=== PATIENT | male | born 1975 | race Caucasian/White ===

== ENCOUNTER 2016-09-17 09:36 | Day surgery (SDC) | payer BC, OTHER ==
[2016-09-15 10:31] VITALS: BMI 27.7
[~2016-09-17 09:36] MED LIST: DEXAMETHASONE SOD PHOSPHATE 10 MG/ML 1 ML VIAL IV ONE; FAMOTIDINE 20 MG/2 ML VIAL IV ONE; HYDROmorphone 1 MG/ML 1 ML SYRINGE IVP PRN; LACTATED RINGERS 1,000 ML IV SCH; LIDOCAINE 1% 20 ML VIAL (10MG/ML) FOR IV START INTRADERMA PRN; MIDAZOLAM 2 MG/2 ML VIAL IV PRN; ONDANSETRON 4 MG/2 ML VIAL IVP ONE; SCOPOLAMINE 1.5MG/72HR PATCH TRANSDERM ONE
[2016-09-17] MEDS ORDERED: fentaNYL (PF) 50 MCG/ML 2 ML AMP ONE (10:35)
[2016-09-17] MEDS ORDERED: MIDAZOLAM 2 MG/2 ML VIAL ONE (10:35)
[2016-09-17] MEDS ORDERED: LIDOCAINE 1% INJ 10MG/ML (20 ML MDV) ONE (10:35)
[2016-09-17] MEDS ORDERED: PROPOFOL 10 MG/ML 20 ML VIAL IV ONE (10:35)
[2016-09-17] MEDS ORDERED: OFLOXACIN 0.3% OTIC DROPS 5 ML BTL RIGHT EAR ONE ×2 (10:43→10:53)
--- NOTE | 2016-09-17 10:59 | P.OP ---
Date of Procedure: 09/17/16 Preoperative Diagnosis: Right chronic otitis media with effusion Postoperative Diagnosis: Same Procedure(s) Performed: Right triune ventilation tube placement Anesthesia: VICKIE SALDANA Surgeon: Hilario Mejia Estimated Blood Loss (ml): 0 Pathology: none sent Condition: stable Disposition: PACU Indications for Procedure: This is a 41-year-old white male whose had difficulties with chronic otitis media having had ventilation tubes 2 or 3 times in the right ear previously. His symptoms resolved with ventilation tube placement but then recur when these extrude was noted to have a serous middle ear effusion with conductive hearing loss on the right. Operative Findings: Right side serous middle ear effusion Description of Procedure: The patient was brought in the operative suite and placed in a supine position. The patient underwent induction of general anesthesia with laryngeal mask airway intubation without difficulty. The patient was prepped and draped in usual aseptic fashion. The Zeiss microscope was positioned over the right ear and cerumen was cleaned from the external auditory canal. An anteroinferior myringotomy was placed in radial fashion and the middle ear effusion was aspirated. A 1.27 mm triune ventilation tube was placed without difficulty. Floxin otic suspension was placed in the external auditory canal followed by sterile cotton ball. The patient was then allowed to emerge from general anesthesia having tolerated procedure well was excised in the operating suite and transferred to postop recovery area in satisfactory condition.
[2016-09-17 11:13] VITALS: TEMP 97
[2016-09-17 11:34] VITALS: RESP 18
[2016-09-17 12:15] VITALS: BP 126/81; PULSE 61
== END 2016-09-17 12:31 | disposition home or self-care (01) ==
LOC: OR 09:36
PROVIDERS: ATTEND Otolaryngology
DX: H65.21 Chronic serous otitis media, right ear (principal); H90.11 Conductive hearing loss, unilateral, right ear, with unrestricted hearing on the contralateral side
CPT/HCPCS: 69436; J2250; J1100; J2405; J2001; J3010; J1170; J2704

== ENCOUNTER → 2021-08-30 | Outpatient (CLI) | payer BC ==
[2021-08-30 10:26] LABS: Basophils % (A) 0.9 %; Eosinophils # (A) 0.89 X 10*3/uL (0.04-0.35); Eosinophils % (A) 7.6 %; HCT 47.6 % (39.6-50.0); HGB 16.7 g/dL (13.0-17.0); Immature Grans, Automated 0.4 %; Lymphocytes # (A) 2.26 X 10*3/uL (0.90-5.00); Lymphocytes % (A) 19.3 %; MCH 32.7 pg (27.0-32.0); MCHC 35.1 g/dL (32.0-37.0); MCV 93.3 fL (80.0-97.0); Mean Platelet Volume 9.1 fL (9.5-12.2); Monocytes # (A) 1.24 X 10*3/uL (0.20-1.00); Monocytes % (A) 10.6 %; NRBC Per 100 WBC 0 /100 WBCS (0.0-0.0); Neutrophils # (A) 7.16 X 10*3/uL (1.80-7.70); Neutrophils % (A) 61.2 %; Platelet Count 471 X 10*3/uL (140-440); RDW 12.8 % (11.5-14.5)
[2021-08-30 10:47] LABS: ALT 22 U/L (10-49); AST 21 U/L (14-35); African American GFR (CKD) 117.5 (60.0-200.0); Alkaline Phosphatase 56 U/L (41-126); BUN/Creat Ratio 17.22 Ratio (12.00-20.00); Blood Urea Nitrogen 15.5 mg/dL (9.0-27.0); Calcium 9.8 mg/dL (8.7-10.3); Carbon Dioxide 25.2 mmol/L (20.0-27.5); Chloride 106 mmol/L (96-109); Chol/HDL Ratio 3.35 Ratio; Glucose 96 mg/dL (70-110); Hepatitis C IgG Antibody Nonreactive (Nonreactive); LDL Cholesterol,Calculated 75.2 mg/dL (0.0-131.0); Non-African American GFR(CKD) 101.4 (60.0-200.0); Potassium 4.6 mmol/L (3.5-5.5); Sodium 141 mmol/L (135-145); VLDL Calculation 19.54 mg/dL (5.00-40.00)
== END | disposition home or self-care (01) ==
LOC: LABWHC1 07:06
PROVIDERS: ATTEND Family Medicine
DX: Z00.00 Encounter for general adult medical examination without abnormal findings (principal); Z71.3 Dietary counseling and surveillance; Z71.82 Exercise counseling; Z12.5 Encounter for screening for malignant neoplasm of prostate; Z13.29 Encounter for screening for other suspected endocrine disorder; I10 Essential (primary) hypertension; Z90.81 Acquired absence of spleen
CPT/HCPCS: 36415; 80053; 80061; 84443; 85025; 86803; 87522

== ENCOUNTER 2023-10-09 20:45 | Inpatient (IN) | payer BC, OTHER ==
[2023-10-09] MEDS: KETOROLAC 15 MG/ML 1 ML VIAL IVP STA (23:55)
[2023-10-09] MEDS: SODIUM CHLORIDE 0.9% 1,000 ML IV STA (23:58)
[2023-10-10 00:29] LABS: ALT 34 U/L (4-49); AST 44 U/L (17-59); African American GFR (CKD) >90 (>60 ml/min/1.73 sqM); Albumin 3.8 g/dL (3.5-5.0); Alkaline Phosphatase 103 U/L (38-126); Amylase 49 U/L (30-110); Anion Gap 7 mmol/L; Blood Urea Nitrogen 13 mg/dL (9-20); Calcium 8.5 mg/dL (8.4-10.2); Carbon Dioxide 21 mmol/L (22-30); Chloride 108 mmol/L (98-107); Glucose 134 mg/dL (74-99); Lipase 86 U/L (23-300); Non-African American GFR(CKD) >90 (>60 ml/min/1.73 sqM); Potassium 4.1 mmol/L (3.5-5.1); Sodium 136 mmol/L (137-145); Total Bilirubin 2.2 mg/dL (0.2-1.3); Total Protein 6.8 g/dL (6.3-8.2)
[2023-10-10 00:38] LABS: Basophils # (A) 0.1 k/uL (0-0.2); Basophils % (A) 0 %; Eosinophils # (A) 0.1 k/uL (0-0.7); Eosinophils % (A) 1 %; HCT 42.9 % (39.0-53.0); HGB 16.2 gm/dL (13.0-17.5); Hyperchromasia Moderate; Lymphocytes # (A) 2.5 k/uL (1.0-4.8); Lymphocytes % (A) 15 %; MCH 34.8 pg (25.0-35.0); MCHC 37.7 g/dL (31.0-37.0); MCV 92.3 fL (80.0-100.0); Mean Platelet Volume 8.4; Monocytes # (A) 1.7 k/uL (0-1.0); Monocytes % (A) 10 %; Neutrophils # (A) 12.6 k/uL (1.3-7.7); Neutrophils % (A) 73 %; Platelet Count 385 k/uL (150-450); RBC 4.65 m/uL (4.30-5.90); RDW 12.6 % (11.5-15.5); WBC 17.1 k/uL (3.8-10.6)
[2023-10-10] MEDS: ONDANSETRON 4 MG/2 ML VIAL IVP STA (01:00)
--- NOTE | 2023-10-10 01:39 | CT ---
EXAM: CT Abdomen and Pelvis With Intravenous Contrast CLINICAL HISTORY: ITS.REASON CT Reason: abdominal pain TECHNIQUE: Axial computed tomography images of the abdomen and pelvis with intravenous contrast. CTDI is 24.8 mGy and DLP is 1324.1 mGy-cm. This CT exam was performed using one or more of the following dose reduction techniques: automated exposure control, adjustment of the mA and/or kV according to patient size, and/or use of iterative reconstruction technique. COMPARISON: No relevant prior studies available. FINDINGS: Lung bases: Unremarkable. No mass. No consolidation. ABDOMEN: Liver: Unremarkable. No mass. Gallbladder and bile ducts: Unremarkable. No calcified stones. No ductal dilation. Pancreas: Unremarkable. No mass. No ductal dilation. Spleen: Unremarkable. No splenomegaly. Adrenals: Unremarkable. No mass. Kidneys and ureters: Unremarkable. No solid mass. No hydronephrosis. Stomach and bowel: Diverticulosis, without acute diverticulitis. No small bowel obstruction. No free intraperitoneal air. PELVIS: Appendix: Normal appendix. Bladder: Unremarkable. No mass. Reproductive: Unremarkable as visualized. ABDOMEN and PELVIS: Intraperitoneal space: Unremarkable. No free air. No significant fluid collection. Bones/joints: Degenerative changes of the spine. No acute fracture. No dislocation. Soft tissues: Unremarkable. Vasculature: Suspected thrombus within the superior mesenteric vein and portal vein with surrounding edema. Abdominal ultrasound recommended for further evaluation. Atherosclerotic changes of the aorta. No abdominal aortic aneurysm. Lymph nodes: Unremarkable. No enlarged lymph nodes. IMPRESSION: Suspected thrombus within the superior mesenteric vein and portal vein with surrounding edema. Abdominal ultrasound recommended for further evaluation.
[2023-10-10 01:45] LABS: Appearance,Urine Clear (Clear); Bilirubin,Urine Negative (Negative); Blood,Urine Negative (Negative); Color,Urine Yellow; Glucose,Urine (UA) Negative (Negative); Ketones,Urine Negative (Negative); Leukocyte Esterase,Urine Negative (Negative); Nitrite,Urine Negative (Negative); Protein,Urine 1+ (Negative); RBC,Urine 4 /hpf (0-5); Squamous Epithelial Cell,Urine <1 /hpf (0-4); Urobilinogen,Urine <2.0 mg/dL (<2.0)
[2023-10-10 01:54] LABS: Specific Gravity,Urine >1.050 (1.001-1.035)
--- NOTE | 2023-10-10 02:24 | ED ---
Abdominal Pain HPI - General Source: patient Mode of arrival: ambulatory Limitations: no limitations <Brett Vila - Last Filed: 10/10/23 03:45> <Jewel Guadalupe - Last Filed: 10/12/23 04:34> - General Chief Complaint: Abdominal Pain Stated Complaint: abd pain NVD Time Seen by Provider: 10/09/23 22:40 - History of Present Illness Initial Comments: 48-year-old male presenting with chief complaint of abdominal pain. Patient has had left upper quadrant pain for the last 5 days. Diarrhea c/o. No vomiting. Pain gets worse with deep breaths.. No URI-like symptoms. No hematochezia or melena. No dysuria or hematuria. Surgical history includes splenectomy at age 4, does not remember the cause. Admits to social alcohol use (Brett Vila) - Related Data Home Medications Medication Instructions Recorded Confirmed No Known Home Medications 10/10/23 10/10/23 Allergies Allergy/AdvReac Type Severity Reaction Status Date / Time No Known Allergies Allergy Verified 10/10/23 08:35 Review of Systems ROS Other: All systems not noted in ROS Statement are negative. <Brett Vila - Last Filed: 10/10/23 03:45> ROS Other: All systems not noted in ROS Statement are negative. <Jewel Guadalupe - Last Filed: 10/12/23 04:34> ROS Statement: Those systems with pertinent positive or pertinent negative responses have been documented in the HPI. Past Medical History Past Medical History: Hearing Disorder / Deafness, Hypertension Additional Past Medical History / Comment(s): RT HEARING POOR R/T OM. 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 Absent: meningismus Respiratory exam: Present: normal lung sounds bilaterally. Absent: respiratory distress, wheezes, rales, rhonchi, stridor Cardiovascular Exam: Present: regular rate, normal rhythm, normal heart sounds. Absent: systolic murmur, diastolic murmur, rubs, gallop, clicks GI/Abdominal exam: Present: soft, tenderness (LUQ). Absent: distended, guarding, rebound, rigid Neurological exam: Present: alert, oriented X3 Psychiatric exam: Present: normal affect, normal mood Skin exam: Present: warm, dry <Brett Vila - Last Filed: 10/10/23 03:45> Course Vital Signs 10/09/23 10/10/23 10/10/23 21:07 04:00 08:00 Temperature 99.1 F Pulse Rate 85 70 76 Respiratory 18 18 18 Rate Blood Pressure 152/96 132/93 135/100 O2 Sat by Pulse 97 97 98 Oximetry 10/10/23 10/10/23 10/10/23 13:00 18:00 20:30 Temperature Pulse Rate 80 79 81 Respiratory 17 17 18 Rate Blood Pressure 141/100 136/87 128/84 O2 Sat by Pulse 98 98 98 Oximetry Medical Decision Making - Lab Data Result diagrams: 10/09/23 23:36 10/09/23 23:36 <Brett Vila - Last Filed: 10/10/23 03:45> - Lab Data Result diagrams: 10/11/23 05:49 10/09/23 23:36 <Jewel Guadalupe - Last Filed: 10/12/23 04:34> - Medical Decision Making Was pt. sent in by a medical professional or institution (, PA, DENTAL OFFICE ASSISTANT, urgent care, hospital, or penitentiary...) When possible be specific @ -No Did you speak to anyone other than the patient for history (EMS, parent, family, police, friend...)? What history was obtained from this source @ -No Did you review nursing and triage notes (agree or disagree)? Why? @ -I reviewed and agree with nursing and triage notes Were old charts reviewed (outside hosp., previous admission, EMS record, old EKG , old radiological studies, urgent care reports/EKG's, penitentiary records)? Report findings @ -No old charts were reviewed Differential Diagnosis (chest pain, altered mental status, abdominal pain women, abdominal pain men, vaginal bleeding, weakness, fever, dyspnea, syncope, headache, dizziness, GI bleed, back pain, seizure, CVA, palpatations, mental health, musculoskeletal)? @ -MDM Differential Abdominal Pain Men: Appendicitis, cholecystitis, diverticulosis, ischemic bowel, pancreatitis, hepatitis, UTI, gastroenteritis, AAA, incarcerated hernia, bowel obstruction, constipation, inflammatory bowel, hepatitis, peptic ulcer disease, splenic infarction, perforated viscus, testicular torsion... This is not meant to be an all-inclusive list EKG interpreted by me (3pts min.). @ -As above X-rays interpreted by me (1pt min.). @ -None done CT interpreted by me (1pt min.). @ -CT shows suspected thrombosis within the superior mesenteric vein and portal vein with surrounding edema. Abdominal ultrasound recommended for further evaluation. U/S interpreted by me (1pt. min.). @ -None done What testing was considered but not performed or refused? (CT, X-rays, U/S, labs)? Why? @ -None What meds were considered but not given or refused? Why? @ -None Did you discuss the management of the patient with other professionals (professionals i.e. , PA, DENTAL OFFICE ASSISTANT, lab, RT, psych nurse, school social worker, bolt header, teacher, space operations officer, case packer)? Give summary @ -I spoke with vascular surgeon on-call Dr. Rivers who advised beginning anticoagulation Was smoking cessation discussed for >3mins.? @ -No Was critical care preformed (if so, how long)? @ -No Were there social determinants of health that impacted care today? How? (Homelessness, low income, unemployed, alcoholism, drug addiction, transportation, low edu. Level, literacy, decrease access to med. care, halfway, rehab)? @ -No Was there de-escalation of care discussed even if they declined (Discuss DNR or withdrawal of care, Hospice)? DNR status @ -No What co-morbidities impacted this encounter? (DM, HTN, Smoking, COPD, CAD, Cancer, CVA, ARF, Chemo, Hep., AIDS, mental health diagnosis, sleep apnea, morbid obesity)? @ -None Was patient admitted / discharged? Hospital course, mention meds given and route, prescriptions, significant lab abnormalities, going to OR and other pertinent info. @ -48-year-old male presenting with chief complaint of left upper quadrant pain. Physical exam is conducted. WBC 17.1. CT shows evidence of thrombosis within the portal vein and superior mesenteric vein. Patient was started on heparin and Zosyn. Blood cultures were drawn prior to initiating antibiotics. Patient will be admitted for evaluation by vascular surgery and general surgery. Patient is agreeable with this plan. I discussed this case with my attending Dr. Guadalupe Undiagnosed new problem with uncertain prognosis? @ -No Drug Therapy requiring intensive monitoring for toxicity (Heparin, Nitro, Insulin, Cardizem)? @ -Heparin Were any procedures done? @ -No Diagnosis/symptom? @ -Thrombosis of the portal vein, thrombosis of the superior mesenteric vein Acute, or Chronic, or Acute on Chronic? @ -Acute Uncomplicated (without systemic symptoms) or Complicated (systemic symptoms)? @ -Complicated Side effects of treatment? @ -No Exacerbation, Progression, or Severe Exacerbation? @ -No Poses a threat to life or bodily function? How? (Chest pain, USA, MA, pneumonia, PE, COPD, DKA, ARF, appy, cholecystitis, CVA, Diverticulitis, Homicidal, Suicidal, threat to staff... and all critical care pts) @ -Yes (Brett Vila) - Lab Data Lab Results 10/09/23 10/09/23 10/09/23 Range/Units 23:36 23:36 23:36 WBC 17.1 H (3.8-10.6) k/uL RBC 4.65 (4.30-5.90) m/uL Hgb 16.2 (13.0-17.5) gm/dL Hct 42.9 (39.0-53.0) % MCV 92.3 (80.0-100.0) fL MCH 34.8 (25.0-35.0) pg MCHC 37.7 H (31.0-37.0) g/dL RDW 12.6 (11.5-15.5) % Plt Count 385 (150-450) k/uL MPV 8.4 Neutrophils % 73 % Lymphocytes % 15 % Monocytes % 10 % Eosinophils % 1 % Basophils % 0 % Neutrophils # 12.6 H (1.3-7.7) k/uL Lymphocytes # 2.5 (1.0-4.8) k/uL Monocytes # 1.7 H (0-1.0) k/uL Eosinophils # 0.1 (0-0.7) k/uL Basophils # 0.1 (0-0.2) k/uL Hyperchromasia Moderate Sodium 136 L (137-145) mmol/L Potassium 4.1 (3.5-5.1) mmol/L Chloride 108 H (98-107) mmol/L Carbon Dioxide 21 L (22-30) mmol/L Anion Gap 7 mmol/L BUN 13 (9-20) mg/dL Creatinine 0.64 L (0.66-1.25) mg/dL Est GFR (CKD-EPI)AfAm >90 (>60 ml/min/1.73 sqM) Est GFR (CKD-EPI)NonAf >90 (>60 ml/min/1.73 sqM) Glucose 134 H (74-99) mg/dL Plasma Lactic Acid Anibal 1.5 (0.7-2.0) mmol/L Calcium 8.5 (8.4-10.2) mg/dL Total Bilirubin 2.2 H (0.2-1.3) mg/dL AST 44 (17-59) U/L ALT 34 (4-49) U/L Alkaline Phosphatase 103 (38-126) U/L Total Protein 6.8 (6.3-8.2) g/dL Albumin 3.8 (3.5-5.0) g/dL Amylase 49 (30-110) U/L Lipase 86 (23-300) U/L Urine Color Urine Appearance (Clear) Urine pH (5.0-8.0) Ur Specific [place] (1.001-1.035) Urine Protein (Negative) Urine Glucose (UA) (Negative) Urine Ketones (Negative) Urine Blood (Negative) Urine Nitrite (Negative) Urine Bilirubin (Negative) Urine Urobilinogen (<2.0) mg/dL Ur Leukocyte Esterase (Negative) Urine RBC (0-5) /hpf Ur Squamous Epith Cells (0-4) /hpf 10/10/23 Range/Units 01:15 WBC (3.8-10.6) k/uL RBC (4.30-5.90) m/uL Hgb (13.0-17.5) gm/dL Hct (39.0-53.0) % MCV (80.0-100.0) fL MCH (25.0-35.0) pg MCHC (31.0-37.0) g/dL RDW (11.5-15.5) % Plt Count (150-450) k/uL MPV Neutrophils % % Lymphocytes % % Monocytes % % Eosinophils % % Basophils % % Neutrophils # (1.3-7.7) k/uL Lymphocytes # (1.0-4.8) k/uL Monocytes # (0-1.0) k/uL Eosinophils # (0-0.7) k/uL Basophils # (0-0.2) k/uL Hyperchromasia Sodium (137-145) mmol/L Potassium (3.5-5.1) mmol/L Chloride (98-107) mmol/L Carbon Dioxide (22-30) mmol/L Anion Gap mmol/L BUN (9-20) mg/dL Creatinine (0.66-1.25) mg/dL Est GFR (CKD-EPI)AfAm (>60 ml/min/1.73 sqM) Est GFR (CKD-EPI)NonAf (>60 ml/min/1.73 sqM) Glucose (74-99) mg/dL Plasma Lactic Acid Anibal (0.7-2.0) mmol/L Calcium (8.4-10.2) mg/dL Total Bilirubin (0.2-1.3) mg/dL AST (17-59) U/L ALT (4-49) U/L Alkaline Phosphatase (38-126) U/L Total Protein (6.3-8.2) g/dL Albumin (3.5-5.0) g/dL Amylase (30-110) U/L Lipase (23-300) U/L Urine Color Yellow Urine Appearance Clear (Clear) Urine pH 8.0 (5.0-8.0) Ur Specific [place] >1.050 H (1.001-1.035) Urine Protein 1+ H (Negative) Urine Glucose (UA) Negative (Negative) Urine Ketones Negative (Negative) Urine Blood Negative (Negative) Urine Nitrite Negative (Negative) Urine Bilirubin Negative (Negative) Urine Urobilinogen <2.0 (<2.0) mg/dL Ur Leukocyte Esterase Negative (Negative) Urine RBC 4 (0-5) /hpf Ur Squamous Epith Cells <1 (0-4) /hpf Disposition Time of Disposition: 02:24 <Brett Vila - Last Filed: 10/10/23 03:45> <Jewel Guadalupe - Last Filed: 10/12/23 04:34> Clinical Impression: Portal vein thrombosis, Superior mesenteric vein thrombosis Disposition: ADMITTED IP TO THIS HOSP Condition: Serious
[2023-10-10] MEDS ORDERED: NALOXONE 0.4 MG/ML 1 ML VIAL IV PRN (02:39)
[2023-10-10] MEDS ORDERED: ONDANSETRON 4 MG/2 ML VIAL IVP PRN (02:39)
[2023-10-10] MEDS: SODIUM CHLORIDE 0.9% 1,000 ML IV SCH (03:21)
[2023-10-10] MEDS: PIPERACILLIN-TAZOBACTAM 3.375 GM in SODIUM CHLORIDE 0.9% 100 ML IVPB STA (03:21)
[2023-10-10 04:27] LABS: Partial Thromboplastin Time 25.8 sec (22.0-30.0)
[2023-10-10] MEDS: HEPARIN SOD,PORK IN 0.45% NACL 25,000 UNIT in 0.45% NACL 1 250ML.BAG IV SCH (04:48)
[2023-10-10] MEDS: HEPARIN SODIUM 1,000 UN/ML (10ML VL) IV ONE (04:50)
[2023-10-10] MEDS: HEPARIN SODIUM 1,000 UN/ML (10ML VL) IV PRN (09:42)
[2023-10-10] MEDS: HYDROmorphone 1 MG/ML 1 ML SYRINGE IVP PRN (13:12)
--- NOTE | 2023-10-10 13:51 | P.HPIM ---
History of Present Illness 48-year-old male came in with complaints of abdominal pain severe in the left upper and mid quadrants found to have superior mesenteric thrombosis. Patient denies any alcohol use does not have any history of cirrhosis patient does have leukocytosis without any evidence of infection patient denies any cough with sputum production and any dysuria, denies any nausea vomiting. Patient was started on IV heparin with vascular surgery and general surgery consultations REVIEW OF SYSTEMS: CONSTITUTIONAL: No fever, no malaise, no fatigue. HEENT: No recent visual problems or hearing problems. Denied any sore throat. CARDIOVASCULAR: No chest pain, orthopnea, PND, no palpitations, no syncope. PULMONARY: No shortness of breath, no cough, no hemoptysis. GASTROINTESTINAL as mentioned in HPI NEUROLOGICAL: No headaches, no weakness, no numbness. HEMATOLOGICAL: Denies any bleeding or petechiae. GENITOURINARY: Denies any burning micturition, frequency, or urgency. MUSCULOSKELETAL/RHEUMATOLOGICAL: Denies any joint pain, swelling, or any muscle pain. ENDOCRINE: Denies any polyuria or polydipsia. The rest of the 14-point review of systems is negative. PHYSICAL EXAMINATION: GENERAL: The patient is alert and oriented x3, not in any acute distress. Well developed, well nourished. HEENT: Pupils are round and equally reacting to light. EOMI. No scleral icterus. No conjunctival pallor. Normocephalic, atraumatic. No pharyngeal erythema. No thyromegaly. CARDIOVASCULAR: S1 and S2 present. No murmurs, rubs, or gallops. PULMONARY: Chest is clear to auscultation, no wheezing or crackles. ABDOMEN: Soft, nontender, nondistended, normoactive bowel sounds. No palpable organomegaly. MUSCULOSKELETAL: No joint swelling or deformity. EXTREMITIES: No cyanosis, clubbing, or pedal edema. NEUROLOGICAL: Gross neurological examination did not reveal any focal deficits. SKIN: No rashes. Assessment and plan -Superior mesenteric vein thrombosis: Continue with IV heparin vascular surgery and general surgery evaluation -Leukocytosis without any evidence of infection secondary to mesenteric thrombosis. DVT prophylaxis: On IV heparin Past Medical History Past Medical History: Hearing Disorder / Deafness, Hypertension Additional Past Medical History / Comment(s): RT HEARING POOR R/T OM. 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4., bunionectomy Past Anesthesia/Blood Transfusion Reactions: No Reported Reaction Past Psychological History: No Psychological Hx Reported Smoking Status: Never smoker Past Alcohol Use History: None Reported Past Drug Use History: Marijuana - Past Family History Father Family Medical History: Cancer Medications and Allergies Home Medications Medication Instructions Recorded Confirmed Type No Known Home Medications 10/10/23 10/10/23 History Allergies Allergy/AdvReac Type Severity Reaction Status Date / Time No Known Allergies Allergy Verified 10/10/23 08:35 Physical Exam Vitals: Vital Signs Temp Pulse Resp BP Pulse Ox 10/10/23 13:00 80 17 141/100 98 10/10/23 08:00 76 18 135/100 98 10/10/23 04:00 70 18 132/93 97 10/09/23 21:07 99.1 F 85 18 152/96 97 Intake and Output 10/09/23 10/10/23 10/10/23 22:59 06:59 14:59 Intake Total 49.167 Balance 49.167 Intake: Intake, IV Titration 49.167 Amount Heparin Sod,Pork in 0.45% 49.167 NaCl 25,000 unit In 0.45 % NaCl 1 250ml.bag @ 10. 021 UNITS/KG/HR 10 mls/hr IV .Q24H [facility] Rx#: [id number] Other: Weight 99.79 kg Results CBC & Chem 7: 10/09/23 23:36 10/09/23 23:36 Labs: Abnormal Lab Results - Last 24 Hours (Table) 10/09/23 10/09/23 10/10/23 Range/Units 23:36 23:36 01:15 WBC 17.1 H (3.8-10.6) k/uL MCHC 37.7 H (31.0-37.0) g/dL Neutrophils # 12.6 H (1.3-7.7) k/uL Monocytes # 1.7 H (0-1.0) k/uL APTT (22.0-30.0) sec Sodium 136 L (137-145) mmol/L Chloride 108 H (98-107) mmol/L Carbon Dioxide 21 L (22-30) mmol/L Creatinine 0.64 L (0.66-1.25) mg/dL Glucose 134 H (74-99) mg/dL Total Bilirubin 2.2 H (0.2-1.3) mg/dL Ur Specific [place] >1.050 H (1.001-1.035) Urine Protein 1+ H (Negative) 10/10/23 Range/Units 08:21 WBC (3.8-10.6) k/uL MCHC (31.0-37.0) g/dL Neutrophils # (1.3-7.7) k/uL Monocytes # (0-1.0) k/uL APTT 37.3 H (22.0-30.0) sec Sodium (137-145) mmol/L Chloride (98-107) mmol/L Carbon Dioxide (22-30) mmol/L Creatinine (0.66-1.25) mg/dL Glucose (74-99) mg/dL Total Bilirubin (0.2-1.3) mg/dL Ur Specific [place] (1.001-1.035) Urine Protein (Negative)
--- NOTE | 2023-10-10 14:20 | P.PN ---
Progress Note - Text Progress Note Date: 10/10/23 Called this morning at [address] with contrast- superior mesenteric vein thrombus noted but doesn't appear occlusive. Discussed with ER- no vascular intervention required at this time. Recommend heparin drip and continue to monitor. Recommend general surgery evaluation as well.
--- NOTE | 2023-10-10 15:11 | P.GSCN ---
History of Present Illness Consult date: 10/10/23 Reason for Consult: Portal Vein Thrombosis History of present illness: Patient is a 48M with a one week history of abdominal pain. Patient states that for the past one week he has had worsening abdominal pain. At first he attributed this to Fast food that he had eaten. He states that over the past week the pain has gotten progressively worse. He denies any nausea or vomiting. No fevers or chills. No shortness of breath or chest pain. He states that he has had diarrhea, but denies any melena or hematochezia. No prior episodes such as this. 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 He denies any family history of bleeding or clotting disorders. 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 No evidence of small bowel venous congestion or ischemia was seen. Review of Systems Negative except for as stated above Past Medical History Past Medical History: Hearing Disorder / Deafness, Hypertension Additional Past Medical History / Comment(s): RT HEARING POOR R/T OM. 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4., bunionectomy Past Anesthesia/Blood Transfusion Reactions: No Reported Reaction Past Psychological History: No Psychological Hx Reported Smoking Status: Never smoker Past Alcohol Use History: None Reported Past Drug Use History: Marijuana - Past Family History Father Family Medical History: Cancer Medications and Allergies Home Medications Medication Instructions Recorded Confirmed Type No Known Home Medications 10/10/23 10/10/23 History Allergies Allergy/AdvReac Type Severity Reaction Status Date / Time No Known Allergies Allergy Verified 10/10/23 08:35 Surgical - Exam Vital Signs Temp Pulse Resp BP Pulse Ox 99.1 F 85 18 152/96 97 10/09/23 21:07 10/09/23 21:07 10/09/23 21:07 10/09/23 21:07 10/09/23 21:07 Gen: AxO, NAD Pulm: non-labored respirations Abd: soft, non-tender, non-distended. No Guarding/rebound/rigidity Extrem: no edema seen. +2 DP/PT of B/L LE. +2 radial pulse bilaterally Results - Labs 05/31/24 23:36 10/09/23 23:36 Abnormal Lab Results - Last 24 Hours (Table) 10/09/23 10/09/23 10/10/23 Range/Units 23:36 23:36 01:15 WBC 17.1 H (3.8-10.6) k/uL MCHC 37.7 H (31.0-37.0) g/dL Neutrophils # 12.6 H (1.3-7.7) k/uL Monocytes # 1.7 H (0-1.0) k/uL APTT (22.0-30.0) sec Sodium 136 L (137-145) mmol/L Chloride 108 H (98-107) mmol/L Carbon Dioxide 21 L (22-30) mmol/L Creatinine 0.64 L (0.66-1.25) mg/dL Glucose 134 H (74-99) mg/dL Total Bilirubin 2.2 H (0.2-1.3) mg/dL Ur Specific [place] >1.050 H (1.001-1.035) Urine Protein 1+ H (Negative) 10/10/23 10/10/23 Range/Units 08:21 14:33 WBC (3.8-10.6) k/uL MCHC (31.0-37.0) g/dL Neutrophils # (1.3-7.7) k/uL Monocytes # (0-1.0) k/uL APTT 37.3 H 37.2 H (22.0-30.0) sec Sodium (137-145) mmol/L Chloride (98-107) mmol/L Carbon Dioxide (22-30) mmol/L Creatinine (0.66-1.25) mg/dL Glucose (74-99) mg/dL Total Bilirubin (0.2-1.3) mg/dL Ur Specific [place] (1.001-1.035) Urine Protein (Negative) Diabetes panel 10/09/23 Range/Units 23:36 Sodium 136 L (137-145) mmol/L Potassium 4.1 (3.5-5.1) mmol/L Chloride 108 H (98-107) mmol/L Carbon Dioxide 21 L (22-30) mmol/L BUN 13 (9-20) mg/dL Creatinine 0.64 L (0.66-1.25) mg/dL Glucose 134 H (74-99) mg/dL Calcium 8.5 (8.4-10.2) mg/dL AST 44 (17-59) U/L ALT 34 (4-49) U/L Alkaline Phosphatase 103 (38-126) U/L Total Protein 6.8 (6.3-8.2) g/dL Albumin 3.8 (3.5-5.0) g/dL Calcium panel 10/09/23 Range/Units 23:36 Calcium 8.5 (8.4-10.2) mg/dL Albumin 3.8 (3.5-5.0) g/dL Pituitary panel 10/09/23 Range/Units 23:36 Sodium 136 L (137-145) mmol/L Potassium 4.1 (3.5-5.1) mmol/L Chloride 108 H (98-107) mmol/L Carbon Dioxide 21 L (22-30) mmol/L BUN 13 (9-20) mg/dL Creatinine 0.64 L (0.66-1.25) mg/dL Glucose 134 H (74-99) mg/dL Calcium 8.5 (8.4-10.2) mg/dL Adrenal panel 10/09/23 Range/Units 23:36 Sodium 136 L (137-145) mmol/L Potassium 4.1 (3.5-5.1) mmol/L Chloride 108 H (98-107) mmol/L Carbon Dioxide 21 L (22-30) mmol/L BUN 13 (9-20) mg/dL Creatinine 0.64 L (0.66-1.25) mg/dL Glucose 134 H (74-99) mg/dL Calcium 8.5 (8.4-10.2) mg/dL Total Bilirubin 2.2 H (0.2-1.3) mg/dL AST 44 (17-59) U/L ALT 34 (4-49) U/L Alkaline Phosphatase 103 (38-126) U/L Total Protein 6.8 (6.3-8.2) g/dL Albumin 3.8 (3.5-5.0) g/dL Assessment and Plan Assessment: Patient is a 48-year-old male with a past medical history of splenectomy for unknown hematologic disorder who presents with a week history of abdominal pain and CT evidence imaging findings of portal vein and superior mesenteric vein thrombosis without evidence of intestinal ischemia Plan: -CLD as tolerated -PRN pain and nausea control -IV heparin goal of PTT 60-80 -Serial abdominal examinations -Trend lactic acid currently 0.8(1.5) -No acute surgical intervention; no current evidence of intestinal ischemia. Will continue to monitor if change in abdominal examination, worsening lactic ac idosis, hemodynamic instability will reassess for intestinal ischemia Oziel Santillan MD General Surgery
[2023-10-10] MEDS ORDERED: ACETAMINOPHEN TAB 325 MG TAB PO PRN (21:32)
[2023-10-10] MEDS: ACETAMINOPHEN TAB 325 MG TAB PO STA (21:43)
[2023-10-11 06:31] LABS: Partial Thromboplastin Time 61.1 sec (22.0-30.0)
[2023-10-11] MEDS: KETOROLAC 15 MG/ML 1 ML VIAL IVP PRN (08:37)
[2023-10-11 09:19] LABS: HCT 43.2 % (39.6-50.0); HGB 14.9 g/dL (13.0-17.0); MCH 32.8 pg (27.0-32.0); MCHC 34.5 g/dL (32.0-37.0); MCV 95.2 FL (80.0-97.0); Mean Platelet Volume 9.5 FL (9.5-12.2); NRBC Per 100 WBC 0 X 10*3/uL (0.00-0.01); Platelet Count 436 X 10*3/uL (140-440); RBC 4.54 X 10*6/uL (4.40-5.60); RDW 12.2 % (11.5-14.5); WBC 12.92 X 10*3/uL (4.50-10.00)
[2023-10-11 10:18] LABS: Basophils # (A) 0.08 X 10*3/uL (0.00-0.10); Basophils % (A) 0.6 %; Eosinophils # (A) 0.28 X 10*3/uL (0.04-0.35); Eosinophils % (A) 2.2 %; Lymphocytes # (A) 3.16 X 10*3/uL (0.90-5.00); Lymphocytes % (A) 24.5 %; Monocytes # (A) 1.95 X 10*3/uL (0.20-1.00); Monocytes % (A) 15.1 %; Neutrophils # (A) 7.39 X 10*3/uL (1.80-7.70); Neutrophils % (A) 57.1 %
--- NOTE | 2023-10-11 13:02 | P.PN ---
Subjective Progress Note Date: 10/11/23 patient's complaints of epigastric and left upper quadrant pain. On exam vital signs appear stable. Abdomen soft. Epigastric left upper quadrant pain. Patient scheduled for EGD in the a.m. Objective - Vital Signs Vital signs: Vital Signs Temp 99.0 F 10/11/23 07:48 Pulse 64 10/11/23 07:48 Resp 16 10/11/23 07:48 BP 136/87 10/11/23 07:48 Pulse Ox 97 10/11/23 07:48 FiO2 Intake & Output 10/10/23 10/11/23 10/11/23 18:59 06:59 18:59 Intake Total 124.742 125.258 Output Total 300 250 Balance 124.742 -174.742 -250 Weight 99.79 kg Intake: Intake, IV Titration 124.742 125.258 Amount Heparin Sod,Pork in 0.45% 124.742 125.258 NaCl 25,000 unit In 0.45 % NaCl 1 250ml.bag @ 10. 021 UNITS/KG/HR 10 mls/hr IV .Q24H [facility] Rx#: [id number] Output: Urine 300 250 Other: Voiding Method Toilet Urinal # Voids 3 - Labs CBC & Chem 7: 10/11/23 05:49 10/09/23 23:36 Labs: Abnormal Lab Results - Last 24 Hours (Table) 10/10/23 10/10/23 10/11/23 Range/Units 14:33 21:33 05:49 WBC 12.92 H (4.50-10.00) X 10*3/uL MCH 32.8 H (27.0-32.0) pg Immature Gran # 0.06 H (0.00-0.04) X 10*3/uL Monocytes # 1.95 H (0.20-1.00) X 10*3/uL APTT 37.2 H 30.5 H (22.0-30.0) sec 10/11/23 Range/Units 05:49 WBC (4.50-10.00) X 10*3/uL MCH (27.0-32.0) pg Immature Gran # (0.00-0.04) X 10*3/uL Monocytes # (0.20-1.00) X 10*3/uL APTT 61.1 H (22.0-30.0) sec Microbiology - Last 24 Hours (Table) 10/10/23 02:42 Blood Culture - Preliminary Blood 10/10/23 02:21 Blood Culture - Preliminary Blood
--- NOTE | 2023-10-11 14:05 | P.GSCN ---
History of Present Illness Consult date: 10/11/23 Reason for Consult: Superior mesenteric vein thrombosis History of present illness: 48-year-old gentleman who originally presented to the hospital secondary to abdominal pain in the left upper quadrant and was found on workup to have splenic vein and portal vein thrombus. He states since his admission his pain has improved significantly. He still has some discomfort especially when he eats his left upper quadrant. He states he had previous splenectomy when he was a young child and has never had any significant abdominal discomfort or issues since. He denies any fevers, chills, chest pain or shortness of breath. He states that the general surgeon is going to do an EGD next week at some point. Review of Systems All systems: negative (Was mentioned in the HPI or past medical history) Past Medical History Past Medical History: Hearing Disorder / Deafness, Hypertension Additional Past Medical History / Comment(s): RT HEARING POOR R/T OM. 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4., bunionectomy Past Anesthesia/Blood Transfusion Reactions: No Reported Reaction Past Psychological History: No Psychological Hx Reported Smoking Status: Never smoker Past Alcohol Use History: None Reported Additional Past Alcohol Use History / Comment(s): social drinker, takes marijuana gummy at bedtime. Past Drug Use History: Marijuana - Past Family History Father Family Medical History: Cancer Medications and Allergies Home Medications Medication Instructions Recorded Confirmed Type No Known Home Medications 10/10/23 10/10/23 History Allergies Allergy/AdvReac Type Severity Reaction Status Date / Time No Known Allergies Allergy Verified 10/10/23 08:35 Surgical - Exam Vital Signs Temp Pulse Resp BP Pulse Ox 99.1 F 85 18 152/96 97 10/09/23 21:07 10/09/23 21:07 10/09/23 21:07 10/09/23 21:07 10/09/23 21:07 - General well developed, well nourished, no distress - Eyes PERRL - ENT normal pinna, normal nares - Neck no masses - Respiratory normal expansion, normal respiratory effort - Cardiovascular Rhythm: regular - Abdomen Mild tenderness in the left upper quadrant Abdomen: soft, tender - Integumentary no rash, no growths - Neurologic normal coordination - Psychiatric oriented to time, oriented to person, oriented to place, speech is normal Results CT abdomen pelvis demonstrates mild superior mesenteric vein thrombus and portal vein thrombus without any signs of distal ischemia - Labs 10/11/23 05:49 10/09/23 23:36 Abnormal Lab Results - Last 24 Hours (Table) 10/10/23 10/10/23 10/11/23 Range/Units 14:33 21:33 05:49 WBC 12.92 H (4.50-10.00) X 10*3/uL MCH 32.8 H (27.0-32.0) pg Immature Gran # 0.06 H (0.00-0.04) X 10*3/uL Monocytes # 1.95 H (0.20-1.00) X 10*3/uL APTT 37.2 H 30.5 H (22.0-30.0) sec 10/11/23 Range/Units 05:49 WBC (4.50-10.00) X 10*3/uL MCH (27.0-32.0) pg Immature Gran # (0.00-0.04) X 10*3/uL Monocytes # (0.20-1.00) X 10*3/uL APTT 61.1 H (22.0-30.0) sec Microbiology - Last 24 Hours (Table) 10/10/23 02:42 Blood Culture - Preliminary Blood 10/10/23 02:21 Blood Culture - Preliminary Blood Assessment and Plan Assessment: Portal vein and superior mesenteric vein thrombus acute abdominal pain Plan: Reviewed independently CT of the abdomen and pelvis with the patient in full detail which demonstrates mild appearing thrombus within the femoral vein and superior mesenteric vein. No vascular surgical intervention required Agree with heparin drip and transition to oral anticoagulation after EGD. Agree with EGD per general surgery. Thank you for the consultation
[2023-10-11] MEDS: PANTOPRAZOLE 40 MG/10 ML VIAL IVP SCH (14:48)
--- NOTE | 2023-10-11 20:10 | P.PN ---
Subjective Progress Note Date: 10/11/23 48-year-old male came in with complaints of abdominal pain severe in the left upper and mid quadrants found to have superior mesenteric thrombosis. Patient denies any alcohol use does not have any history of cirrhosis patient does have leukocytosis without any evidence of infection patient denies any cough with sputum production and any dysuria, denies any nausea vomiting. Patient was started on IV heparin with vascular surgery and general surgery consultations 10/11/2023 Patient is evaluated today in follow up. Continuing to report left upper quadrant and epigastric abdominal pain. General surgery following. Remains on IV heparin. Review of Systems Constitutional: Denied any fatigue denied any fever. Cardio vascular: denied any chest pain, palpitations Gastrointestinal: denied any nausea, vomiting, diarrhea. Having abdominal pain. Pulmonary: Denied any shortness of breath cough Neurologic denied any new focal deficits All inpatient medications were reviewed and appropriate changes in these medications as dictated in the interval history and assessment and plan. PHYSICAL EXAMINATION: GENERAL: The patient is alert and oriented x3, not in any acute distress. Well developed, well nourished. HEENT: Pupils are round and equally reacting to light. EOMI. No scleral icterus. No conjunctival pallor. Normocephalic, atraumatic. No pharyngeal erythema. No thyromegaly. CARDIOVASCULAR: S1 and S2 present. No murmurs, rubs, or gallops. PULMONARY: Chest is clear to auscultation, no wheezing or crackles. ABDOMEN: Soft, nontender, nondistended, normoactive bowel sounds. No palpable or ganomegaly. MUSCULOSKELETAL: No joint swelling or deformity. EXTREMITIES: No cyanosis, clubbing, or pedal edema. NEUROLOGICAL: Gross neurological examination did not reveal any focal deficits. SKIN: No rashes. Assessment and plan -Superior mesenteric vein thrombosis: Continue with IV heparin vascular surgery and general surgery evaluation -Epigastric pain likely gastritis, general surgery recommending EGD tomorrow. IV protonix added. -Leukocytosis without any evidence of infection secondary to mesenteric thrombosis, improving. -Hx of splenectomy at age 54 years old, this was due to a blood disorder will obtain reports tomorrow. DVT prophylaxis: On IV heparin GI prophylaxis: add IV protonix Full Code. The impression and plan of care has been dictated by Latia Hassan, Nurse Practitioner as directed. Dr. Han MD I have performed a history and physical examination and medical decision making of this patient, discussed the same with the dictator, and agree with the dictators assessment and plan as written, documented as a scribe. Based on total visit time, I have performed more than 50% of this visit. Objective - Vital Signs Vital signs: Vital Signs Temp 99.0 F 10/11/23 07:48 Pulse 64 10/11/23 07:48 Resp 16 10/11/23 07:48 BP 136/87 10/11/23 07:48 Pulse Ox 97 10/11/23 07:48 FiO2 Intake & Output 10/10/23 10/11/23 10/11/23 18:59 06:59 18:59 Intake Total 124.742 125.258 Output Total 300 250 Balance 124.742 -174.742 -250 Weight 99.79 kg Intake: Intake, IV Titration 124.742 125.258 Amount Heparin Sod,Pork in 0.45% 124.742 125.258 NaCl 25,000 unit In 0.45 % NaCl 1 250ml.bag @ 10. 021 UNITS/KG/HR 10 mls/hr IV [facility] Rx#: [id number] Output: Urine 300 250 Other: Voiding Method Toilet Urinal # Voids 3 - Labs CBC & Chem 7: 10/11/23 05:49 10/09/23 23:36 Labs: Abnormal Lab Results - Last 24 Hours (Table) 10/10/23 10/10/23 10/11/23 Range/Units 14:33 21:33 05:49 WBC 12.92 H (4.50-10.00) X 10*3/uL MCH 32.8 H (27.0-32.0) pg Immature Gran # 0.06 H (0.00-0.04) X 10*3/uL Monocytes # 1.95 H (0.20-1.00) X 10*3/uL APTT 37.2 H 30.5 H (22.0-30.0) sec 10/11/23 Range/Units 05:49 WBC (4.50-10.00) X 10*3/uL MCH (27.0-32.0) pg Immature Gran # (0.00-0.04) X 10*3/uL Monocytes # (0.20-1.00) X 10*3/uL APTT 61.1 H (22.0-30.0) sec Microbiology - Last 24 Hours (Table) 10/10/23 02:42 Blood Culture - Preliminary Blood 10/10/23 02:21 Blood Culture - Preliminary Blood Assessment and Plan Time with Patient: Less than 30
[2023-10-12 08:47] LABS: Eosinophils # (A) 0.47 X 10*3/uL (0.04-0.35); Eosinophils % (A) 4.9 %; HCT 42.1 % (39.6-50.0); HGB 14.5 g/dL (13.0-17.0); Lymphocytes % (A) 38.2 %; MCH 33.2 pg (27.0-32.0); MCHC 34.4 g/dL (32.0-37.0); MCV 96.3 FL (80.0-97.0); Monocytes # (A) 1.32 X 10*3/uL (0.20-1.00); Monocytes % (A) 13.6 %; NRBC Per 100 WBC 0 X 10*3/uL (0.00-0.01); Neutrophils # (A) 4.05 X 10*3/uL (1.80-7.70); Neutrophils % (A) 41.9 %; Platelet Count 486 X 10*3/uL (140-440); RBC 4.37 X 10*6/uL (4.40-5.60); RDW 12.3 % (11.5-14.5); WBC 9.68 X 10*3/uL (4.50-10.00)
[2023-10-12 09:07] LABS: BUN/Creat Ratio 18.43 Ratio (12.00-20.00); Blood Urea Nitrogen 12.9 mg/dL (9.0-27.0); Calcium 8.7 mg/dL (8.7-10.3); Carbon Dioxide 23.4 mmol/L (21.6-31.8); Chloride 106 mmol/L (96-109); Glucose 73 mg/dL (70-110); Magnesium 2.4 mg/dL (1.5-2.4); Potassium 4.6 mmol/L (3.5-5.5); Sodium 138 mmol/L (135-145)
--- NOTE | 2023-10-12 11:25 | P.PN ---
Subjective Progress Note Date: 10/12/23 Principal diagnosis: [place] pain, portal vein thrombosis, mesenteric vein thrombosis Today patient is seen and examined as a follow-up. He continues to have left- sided abdominal pain. No nausea or vomiting. States diarrhea has improved and he had a formed bowel movement yesterday and today. He is currently n.p.o. and scheduled for upper endoscopy today with general surgery. Objective - Vital Signs Vital signs: Vital Signs Temp 98.9 F 10/12/23 07:15 Pulse 64 10/12/23 07:15 Resp 17 10/12/23 07:15 BP 153/87 10/12/23 07:15 Pulse Ox 97 10/12/23 07:15 FiO2 Intake & Output 10/11/23 10/12/23 10/12/23 18:59 06:59 18:59 Intake Total 1150 1140 Output Total 250 Balance 900 1140 Intake: Intake, IV Titration 1150 900 Amount Heparin Sod,Pork in 0.45% 250 NaCl 25,000 unit In 0.45 % NaCl 1 250ml.bag @ 10. 021 UNITS/KG/HR 10 mls/hr IV .Q24H [facility] Rx#: [id number] Sodium Chloride 0.9% 1, 900 900 000 ml @ 75 mls/hr IV . [id number] [facility] Rx#:[id number] Oral 240 Output: Urine 250 Other: Voiding Method Toilet Urinal # Voids 3 - Exam General appearance: The patient is alert, oriented, appears in no acute distress. HET: Head is normocephalic and atraumatic. Pupils are equal and reactive. Neck: Supple. Abdomen: Soft, left mid quadrant tenderness, nondistended. Extremities: Normal skin color and turgor. Neurological: No focal deficits. Strength and sensation are grossly intact. - Labs CBC & Chem 7: 10/12/23 04:45 10/12/23 04:45 Labs: Abnormal Lab Results - Last 24 Hours (Table) 10/11/23 10/12/23 10/12/23 Range/Units 05:49 04:45 04:45 WBC 12.92 H (4.50-10.00) X 10*3/uL RBC 4.37 L (4.40-5.60) X 10*6/uL MCH 32.8 H 33.2 H (27.0-32.0) pg Plt Count 486 H (140-440) X 10*3/uL Immature Gran # 0.06 H (0.00-0.04) X 10*3/uL Monocytes # 1.95 H 1.32 H (0.20-1.00) X 10*3/uL Eosinophils # 0.47 H (0.04-0.35) X 10*3/uL APTT 53.2 H (22.0-30.0) sec Microbiology - Last 24 Hours (Table) 10/10/23 02:42 Blood Culture - Preliminary Blood 10/10/23 02:21 Blood Culture - Preliminary Blood Assessment and Plan Assessment: 1. Portal vein and superior mesenteric vein thrombus 2. Acute abdominal pain 3. Diarrhea, now resolved Plan: Dr. Rivers independently reviewed CT of the abdomen and pelvis with the patient in full detail which demonstrates mild appearing thrombus within the femoral vein and superior mesenteric vein. No vascular surgical intervention required Agree with heparin drip and transition to oral anticoagulation after EGD. Agree with EGD per general surgery. Thank you for the consultation. Patient can follow-up with vascular surgery in 1 to 2 weeks if symptoms do not resolve. The impression and plan of care has been dictated as directed. Dr. Albarran I performed a history and examination of this patient, discussed the same with the dictator. I agree with the dictator's note ,documented as a scribe. Any additional findings or plans will be noted.
[2023-10-12 13:32] VITALS: RESP 16
[2023-10-12] MEDS ORDERED: LIDOCAINE 1% INJ 10MG/ML (20 ML MDV) ONE (15:49)
[2023-10-12] MEDS ORDERED: PROPOFOL 10 MG/ML 20 ML VIAL IV ONE (15:49)
[2023-10-12 15:54] VITALS: BMI 29.0
--- NOTE | 2023-10-12 16:09 | P.OP ---
Date of Procedure: 10/12/23 Preoperative Diagnosis: epigastric abdominal pain Postoperative Diagnosis: mild antral gastritis Procedure(s) Performed: EGD Anesthesia: MAC Surgeon: Nico Doan Pathology: other (antrum) Condition: stable Disposition: PACU Description of Procedure: patient's placed on the endoscopy table in the lateral position. He received IV sedation. The gastro-/oropharynx passed in the esophagus into the stomach. Scope was then placed through the pylorus. The first and second portion of the duodenum appeared normal. Scope summer back the antrum this appeared inflamed. A biopsies performed. Scope was unretroflexed and remainder the stomach appeared normal. The GE junction was at 40 cm . the distal esophagus apappeared normal. The proximal esophagus appeared normal. Scope withdrawn for patient.
--- NOTE | 2023-10-13 12:34 | P.PN ---
Subjective Progress Note Date: 10/13/23 Principal diagnosis: [place] pain, portal vein thrombosis, mesenteric vein thrombosis Patient was seen and examined today as a follow-up. He remains on IV heparin drip. Will plan for transition to oral anticoagulation. States he is still having some left-sided abdominal pain after eating. No nausea or vomiting. He underwent upper endoscopy yesterday with findings of inflammation in the antrum. He denies any shortness of breath or chest pain. Objective - Vital Signs Vital signs: Vital Signs Temp 98.4 F 10/13/23 07:16 Pulse 64 10/13/23 07:16 Resp 16 10/13/23 07:16 BP 147/80 10/13/23 07:16 Pulse Ox 98 10/13/23 07:16 FiO2 Intake & Output 10/12/23 10/13/23 10/13/23 18:59 06:59 18:59 Intake Total 790 240 0 Balance 790 240 0 Weight 99.79 kg Intake: Intake, IV Titration 250 0 Amount Heparin Sod,Pork in 0.45% 250 0 NaCl 25,000 unit In 0.45 % NaCl 1 250ml.bag @ 10. 021 UNITS/KG/HR 10 mls/hr IV .Q24H [facility] Rx#: [id number] Oral 540 240 Other: Voiding Method Toilet Toilet Toilet Urinal Urinal Urinal # Voids 3 - Exam General appearance: The patient is alert, oriented, appears in no acute distress. HET: Head is normocephalic and atraumatic. Pupils are equal and reactive. Neck: Supple. Abdomen: Soft, left mid quadrant tenderness, nondistended. Extremities: Normal skin color and turgor. Neurological: No focal deficits. Strength and sensation are grossly intact. - Labs CBC & Chem 7: 10/12/23 04:45 10/12/23 04:45 Labs: Abnormal Lab Results - Last 24 Hours (Table) 10/13/23 Range/Units 00:07 APTT 50.0 H (22.0-30.0) sec Microbiology - Last 24 Hours (Table) 10/10/23 02:42 Blood Culture - Preliminary Blood 10/10/23 02:21 Blood Culture - Preliminary Blood Assessment and Plan Assessment: 1. Portal vein and superior mesenteric vein thrombus 2. Acute abdominal pain 3. Diarrhea, now resolved Plan: Dr. Rivers independently reviewed CT of the abdomen and pelvis with the patient in full detail which demonstrates mild appearing thrombus within the femoral vein and superior mesenteric vein. No vascular surgical intervention required May discontinue heparin drip. Transition to Eliquis 5 mg twice daily, give first dose this evening. Patient is status post upper endoscopy Thank you for the consultation. Patient can follow-up with vascular surgery in 1 to 2 weeks if symptoms do not resolve. The impression and plan of care has been dictated as directed. Dr. Albarran I performed a history and examination of this patient, discussed the same with the dictator. I agree with the dictator's note ,documented as a scribe. Any additional findings or plans will be noted.
[2023-10-13 14:35] VITALS: BP 155/79; PULSE 61; TEMP 98.3
--- NOTE | 2023-10-13 14:42 | P.PN ---
Subjective Progress Note Date: 10/13/23 Patient states he feels well overall. He still has some minor discomfort when eating. He describes some pain in the left upper quadrant. His EGD performed yesterday showed some minimal gastritis. On exam vital signs appear stable. Abdomen is soft. There is no significant tenderness. Mesenteric vein thrombosis. Patient will continue IV heparin. Objective - Vital Signs Vital signs: Vital Signs Temp 98.3 F 10/13/23 14:10 Pulse 61 10/13/23 14:10 Resp 16 10/13/23 14:10 BP 155/79 10/13/23 14:10 Pulse Ox 98 10/13/23 14:10 FiO2 Intake & Output 10/12/23 10/13/23 10/13/23 18:59 06:59 18:59 Intake Total 790 240 0 Balance 790 240 0 Weight 99.79 kg Intake: Intake, IV Titration 250 0 Amount Heparin Sod,Pork in 0.45% 250 0 NaCl 25,000 unit In 0.45 % NaCl 1 250ml.bag @ 10. 021 UNITS/KG/HR 10 mls/hr IV .Q24H [facility] B[facility]S AT [facility] Rx#: [id number] Oral 540 240 Other: Voiding Method Toilet Toilet Toilet Urinal Urinal Urinal # Voids 3 - Labs CBC & Chem 7: 10/12/23 04:45 10/12/23 04:45 Labs: Abnormal Lab Results - Last 24 Hours (Table) 10/13/23 Range/Units 00:07 APTT 50.0 H (22.0-30.0) sec Microbiology - Last 24 Hours (Table) 10/10/23 02:42 Blood Culture - Preliminary Blood 10/10/23 02:21 Blood Culture - Preliminary Blood
[2023-10-13] MEDS: APIXABAN 5 MG TAB PO SCH (16:17)
--- NOTE | 2023-10-13 21:20 | P.PN ---
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 Patient denies any alcohol use does not have any history of cirrhosis patient does have leukocytosis without any evidence of infection patient denies any cough with sputum production and any dysuria, denies any nausea vomiting. Patient was started on IV heparin with vascular surgery and general surgery consultations 10/11/2023 Patient is evaluated today in follow up. Continuing to report left upper quadrant and epigastric abdominal pain. General surgery following. Remains on IV heparin. 10/12/2023 Patient continues to have epigastric discomfort. Underwent EGD which reveals mild antral gastritis and biopsies were performed. His blood culture has been negative. Blood work reveals white blood cell count 9.68. Normal electrolytes and renal function. Patient continues on IV heparin. Review of Systems Constitutional: Denied any fatigue denied any fever. Cardio vascular: denied any chest pain, palpitations Gastrointestinal: denied any nausea, vomiting, diarrhea. Having abdominal pain. Pulmonary: Denied any shortness of breath cough Neurologic denied any new focal deficits All inpatient medications were reviewed and appropriate changes in these medications as dictated in the interval history and assessment and plan. PHYSICAL EXAMINATION: GENERAL: The patient is alert and oriented x3, not in any acute distress. Well developed, well nourished. HEENT: Pupils are round and equally reacting to light. EOMI. No scleral icterus. No conjunctival pallor. Normocephalic, atraumatic. No pharyngeal erythema. No thyromegaly. CARDIOVASCULAR: S1 and S2 present. No murmurs, rubs, or gallops. PULMONARY: Chest is clear to auscultation, no wheezing or crackles. ABDOMEN: Soft, nontender, nondistended, normoactive bowel sounds. No palpable organomegaly. MUSCULOSKELETAL: No joint swelling or deformity. EXTREMITIES: No cyanosis, clubbing, or pedal edema. NEUROLOGICAL: Gross neurological examination did not reveal any focal deficits. SKIN: No rashes. Assessment and plan -Superior mesenteric vein thrombosis: Continue with IV heparin vascular surgery and general surgery evaluation -Epigastric pain likely gastritis, general surgery performed EGD with mild antral gastritis continues on protonix. -Leukocytosis without any evidence of infection secondary to mesenteric thrombosis, has resolved. -Hx of splenectomy at age 54 years old, this was due to a blood disorder will attempt to obtain reports. DVT prophylaxis: On IV heparin GI prophylaxis: add IV protonix Full Code. The impression and plan of care has been dictated by Latia Hassan, Nurse Practitioner as directed. Dr. Han MD I have performed a history and physical examination and medical decision making of this patient, discussed the same with the dictator, and agree with the dictators assessment and plan as written, documented as a scribe. Based on total visit time, I have performed more than 50% of this visit. Objective - Vital Signs Vital signs: Vital Signs Temp 98.3 F 10/13/23 14:10 Pulse 61 10/13/23 14:10 Resp 16 10/13/23 14:10 BP 155/79 10/13/23 14:10 Pulse Ox 98 10/13/23 14:10 FiO2 Intake & Output 10/13/23 10/13/23 10/14/23 06:59 18:59 06:59 Intake Total 240 0 Balance 240 0 Intake: Intake, IV Titration 0 Amount Heparin Sod,Pork in 0.45% 0 NaCl 25,000 unit In 0.45 % NaCl 1 250ml.bag @ 10. 021 UNITS/KG/HR 10 mls/hr IV .Q24H BRADEN Rx#: [id number] Oral 240 Other: Voiding Method Toilet Toilet Urinal Urinal # Voids 3 - Labs CBC & Chem 7: 10/12/23 04:45 10/12/23 04:45 Labs: Abnormal Lab Results - Last 24 Hours (Table) 10/13/23 Range/Units 00:07 APTT 50.0 H (22.0-30.0) sec Microbiology - Last 24 Hours (Table) 10/10/23 02:42 Blood Culture - Preliminary Blood 10/10/23 02:21 Blood Culture - Preliminary Blood Assessment and Plan Time with Patient: Less than 30
--- NOTE | 2023-10-13 21:29 | P.DS ---
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 -Epigastric pain likely gastritis, general surgery performed EGD with mild antral gastritis continues on protonix. -Leukocytosis without any evidence of infection secondary to mesenteric thrombosis, has resolved. -Hx of splenectomy at age 54 years old, this was due to a blood disorder unable to obtain reports surgery was at [facility]. Discharge Disposition Patient is stable for discharge home. Patient has been cleared for oral anticoagulation with eliquis 5 mg twice a day and will need close follow up with hematology on discharge. Recommending for patient to also follow up with vascular has an appt made for 10/27/[address] Anaya at 815 am. Patient to follow up with Dr. Vita Carlson in 1 week and will need to call and make appt as he will be establishing care. Patient has been discharged with 2 weeks of omeprazole. Patient instructed for bland diet and to advance as tolerated. Hospital Course This is a 48-year-old male came in with complaints of abdominal pain severe in the left upper and mid quadrants found to have superior mesenteric thrombosis on abdominal CT. Patient denies any alcohol use does not have any history of cirrhosis patient does have leukocytosis without any evidence of infection, patient denies any cough with sputum production and any dysuria, denies any nausea vomiting. Patient was started on IV heparin with vascular surgery and general surgery consultations. He underwent EGD which reveals mild antral gastritis/inflammation and biopsies were performed. His blood culture has been negative. Blood work reveals white blood cell count 9.68. Normal electrolytes and renal function. Will plan for transition to oral anticoagulation. States he is still having some left-sided abdominal pain after eating. No nausea or vomiting his bowel are moving. He denies any shortness of breath or chest pain. Patient will be referred to hematology and vascular on discharge for close follow up. Please see medication reconciliation for a list of current medications. Thank you for allowing us to participate in the care of this patient. The impression and plan of care has been dictated by Latia Hassan, Nurse Practitioner as directed. Dr. Han MD I have performed a history and physical examination and medical decision making of this patient, discussed the same with the dictator, and agree with the dictators assessment and plan as written, documented as a scribe. Based on total visit time, I have performed more than 50% of this visit. Patient Condition at Discharge: Fair Plan - Discharge Summary Discharge Rx Participant: No New Discharge Prescriptions: New Apixaban [Eliquis] 5 mg PO BID #60 tab traMADol HCl [Ultram] 50 mg PO TID 3 Days #9 tab Omeprazole [PriLOSEC] 20 mg PO AC-BID 14 Days #30 cap Acetaminophen Tab [Tylenol] 325 mg PO Q6HR PRN tab PRN Reason: Fever And/ Or Pain Discharge Medication List Acetaminophen Tab [Tylenol] 325 mg PO Q6HR PRN tab 10/13/23 [Rx] Apixaban [Eliquis] 5 mg PO BID #60 tab 10/13/23 [Rx] Omeprazole [PriLOSEC] 20 mg PO AC-BID 14 Days #30 cap 10/13/23 [Rx] traMADol HCl [Ultram] 50 mg PO TID 3 Days #9 tab 10/13/23 [Rx] Follow up Appointment(s)/Referral(s): Long Anaya [STAFF PHYSICIAN] - 11/10/23 1:15 pm (Portal vein thrombosis, mesenteric vein thrombosis) Jewel Rivers DO [STAFF PHYSICIAN] - 10/27/23 8:15 am Vita Carlson MD [STAFF PHYSICIAN] - 1 Week (please call the office to set up a new patient appointment) Patient Instructions/Handouts: Omeprazole (By mouth), Tramadol (By mouth), Apixaban (By mouth), Diet for Stomach Ulcers and Gastritis (ED), Venous Thromboembolism (DC) Activity/Diet/Wound Care/Special Instructions: Activity limited until follow-up Follow-up with primary care provider on discharge Follow-up with vascular surgery outpatient Continue taking medications as prescribed Follow-up and establish with a primary care provider Continue bland diet over the next few days and slowly advance as tolerated Discharge Disposition: HOME SELF-CARE
== END 2023-10-13 17:36 | disposition home or self-care (01) | DRG 246 ==
LOC: EC 20:45 → 5NMEDONC 10-10 03:35
PROVIDERS: ADMIT Hospitalist; ATTEND Hospitalist
PROC: 0DB78ZX Excision of Stomach, Pylorus, Via Natural or Artificial Opening Endoscopic, Diagnostic (ICD-10-PCS; principal; 2023-10-12 08:30)
DX: K55.059 Acute (reversible) ischemia of intestine, part and extent unspecified (principal); K29.70 Gastritis, unspecified, without bleeding; I81 Portal vein thrombosis; Z90.81 Acquired absence of spleen; D72.829 Elevated white blood cell count, unspecified; H91.91 Unspecified hearing loss, right ear; Z28.310 Unvaccinated for COVID-19; Z28.21 Immunization not carried out because of patient refusal
CPT/HCPCS: 36415; 74177; 80048; 80053; 81001; 82150; 83605; 83690; 83735; 85025; 85610; 85730; 87040; 88305; 96361; 96365; 96366; 96367; 96375; 99285

== ENCOUNTER → 2024-03-01 | Outpatient (CLI) | payer BC ==
--- NOTE | 2024-03-01 11:00 | XR ---
EXAMINATION TYPE: XR knee 2 views RT DATE OF EXAM: 03/01/2024 Comparison: None Clinical History: 48-year-old male M25.461 Effusion Right knee Findings: Prominent anterior soft tissue swelling. No sizable knee joint effusion seen. Extensor mechanism appe ars intact. No acute fracture, subluxation, or dislocation. There is an oval sclerotic lesion within the proximal tibial metadiaphysis measuring 2.2 x 1.1 cm. This appears to be centered within the intr amedullary space and has some slight lucent center. No associated periostitis or osteolysis. Narrow z one of transition. Impression: 1. Prominent prepatellar soft tissue swelling could represent contusion or prepatellar bursitis. 2. No significant underlying knee joint effusion or acute osseous abnormality seen. 3. 2.2 x 1.1 cm sclerotic intramedullary lesion in the proximal tibial metadiaphysis with narrow zone of transition. A large bone island, chondroid lesion, or bone infarct are in the differential. Other etiologies not excluded at this time but the narrow zone of transition favors a nonaggressive/benign process. Consider conservative radiographic follow-up in 6 months to reassess. [facility], , 03/01/2024 10:58 AM
== END | disposition home or self-care (01) ==
LOC: RADXRMAIN 10:09
PROVIDERS: ATTEND Family Medicine

== ENCOUNTER → 2024-03-05 | Outpatient (CLI) | payer BC ==
[2024-03-05 13:09] LABS: Basophils # (A) 0.08 X 10*3/uL (0.00-0.10); Eosinophils % (A) 3.8 %; HCT 46.9 % (39.6-50.0); Lymphocytes # (A) 2.97 X 10*3/uL (0.90-5.00); Lymphocytes % (A) 37.6 %; MCH 34.6 pg (27.0-32.0); MCHC 36.2 g/dL (32.0-37.0); MCV 95.3 FL (80.0-97.0); Mean Platelet Volume 9.2 FL (9.5-12.2); Monocytes % (A) 11.4 %; NRBC Per 100 WBC 0 X 10*3/uL (0.00-0.01); Neutrophils % (A) 45.7 %; Platelet Count 529 X 10*3/uL (140-440); RBC 4.92 X 10*6/uL (4.40-5.60); RDW 12.9 % (11.5-14.5); WBC 7.89 X 10*3/uL (4.50-10.00)
[2024-03-05 13:30] LABS: Chol/HDL Ratio 4.07 Ratio
[2024-03-05 13:31] LABS: ALT 27 U/L (10-49); AST 26 U/L (14-35); Albumin 4.2 g/dL (3.8-4.9); Albumin/Globulin Ratio 1.75 Ratio (1.60-3.17); Alkaline Phosphatase 68 U/L (41-126); BUN/Creat Ratio 13.33 Ratio (12.00-20.00); Calcium 9.6 mg/dL (8.7-10.3); Carbon Dioxide 23.2 mmol/L (21.6-31.8); Chloride 106 mmol/L (96-109); Globulin 2.4 g/dL (1.6-3.3); Glucose 108 mg/dL (70-110); LDL Cholesterol,Calculated 108.4 mg/dL (0.0-131.0); Potassium 4.6 mmol/L (3.5-5.5); Sodium 139 mmol/L (135-145); Total Bilirubin 0.9 mg/dL (0.3-1.2); Total Protein 6.6 g/dL (6.2-8.2)
== END | disposition home or self-care (01) ==
LOC: LABWHC1 08:37
PROVIDERS: ATTEND Family Medicine
CPT/HCPCS: 36415; 80053; 80061; 84153; 85025

== ENCOUNTER 2024-03-28 09:19 | Day surgery (SDC) | payer BC ==
[~2024-03-28 09:19] MED LIST changes: -DEXAMETHASONE SOD PHOSPHATE 10 MG/ML 1 ML VIAL IV ONE; -FAMOTIDINE 20 MG/2 ML VIAL IV ONE; -HYDROmorphone 1 MG/ML 1 ML SYRINGE IVP PRN; +LIDOCAINE 1% (10MG/ML) FOR IV START INTRADERMA PRN; -LIDOCAINE 1% 20 ML VIAL (10MG/ML) FOR IV START INTRADERMA PRN; -MIDAZOLAM 2 MG/2 ML VIAL IV PRN; -ONDANSETRON 4 MG/2 ML VIAL IVP ONE; -SCOPOLAMINE 1.5MG/72HR PATCH TRANSDERM ONE
[2024-03-28 09:39] VITALS: RESP 16; TEMP 96.9
[2024-03-28] MEDS: IV FLUID CONTINUATION 1,000 ML IV ONE (09:45)
[2024-03-28] MEDS ORDERED: PROPOFOL 10 MG/ML 20 ML VIAL IV ONE (10:30)
--- NOTE | 2024-03-28 10:35 | P.GSHP ---
History of Present Illness H&P Date: 03/28/24 Chief Complaint: Screening colonoscopy This is a 48-year-old male presents today for screening colonoscopy. Patient denies any significant complaints. Past Medical History Past Medical History: Hearing Disorder / Deafness, Hypertension Additional Past Medical History / Comment(s): upcoming sleep study for possible sleep apnea, adm. in summer @[facility] for mesenteric clot, abd. pain, was on eliquis for short time 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4., bunionectomy Past Anesthesia/Blood Transfusion Reactions: No Reported Reaction Smoking Status: Never smoker - Past Family History Father Family Medical History: Cancer Medications and Allergies Home Medications Medication Instructions Recorded Confirmed Type Multivitamins, Thera [Multivitamin 1 tab PO DAILY 03/25/24 03/25/24 History (formulary)] Sertraline [Zoloft] 50 mg PO HS 03/25/24 03/28/24 History amLODIPine [Norvasc] 5 mg PO HS 03/25/24 03/28/24 History lisinopriL [Zestril] 20 mg PO HS 03/25/24 03/28/24 History Allergies Allergy/AdvReac Type Severity Reaction Status Date / Time No Known Allergies Allergy Verified 03/28/24 09:33 Surgical - Exam Vital Signs Temp Pulse Resp BP Pulse Ox 96.9 F L 66 16 135/82 95 03/28/24 09:38 03/28/24 09:38 03/28/24 09:38 03/28/24 09:38 03/28/24 09:38 - General well developed, well nourished, no distress - Eyes PERRL - ENT normal pinna - Neck no masses - Respiratory normal expansion - Cardiovascular Rhythm: regular - Abdomen Abdomen: soft, non tender Assessment and Plan Assessment: Will perform screening colonoscopy
--- NOTE | 2024-03-28 10:46 | P.OP ---
Date of Procedure: 03/28/24 Preoperative Diagnosis: Screening colonoscopy Postoperative Diagnosis: Diverticulosis Procedure(s) Performed: Colonoscopy Anesthesia: MAC Surgeon: Nico Doan Pathology: none sent Condition: stable Disposition: PACU Description of Procedure: Patient is placed on the endoscopy table in the lateral position. He received IV sedation. The digital rectal exam was performed. This revealed no abnormalities. Flexible colonoscope was then placed patient anus passed throughout the entire colon. The ileocecal valve was visualized. The cecum, ascending and transverse colon appeared normal. In the descending and sigmoid colon there is mild diverticular changes. Scope was back to the rectum this scott eared normal. Scope withdrawn for the patient.
[2024-03-28 11:16] VITALS: BP 133/72; PULSE 64
== END 2024-03-28 11:46 | disposition home or self-care (01) ==
LOC: ORWHC2ENDO 09:19
PROVIDERS: ATTEND Surgery
DX: Z12.11 Encounter for screening for malignant neoplasm of colon (principal); K57.30 Diverticulosis of large intestine without perforation or abscess without bleeding; I10 Essential (primary) hypertension; Z90.89 Acquired absence of other organs; F41.9 Anxiety disorder, unspecified; Z79.899 Other long term (current) drug therapy
CPT/HCPCS: 45378; J2704

== ENCOUNTER → 2024-04-04 | Outpatient (CLI) | payer BC ==
[2024-04-04 17:00] VITALS: BP 138/80; PULSE 68; RESP 14; TEMP 98.8
--- NOTE | 2024-04-04 17:18 | P.SLEEP ---
History of Present Illness DATE: 04/04/2024 CONSULTATION/NEW PATIENT EVALUATION HISTORY OF PRESENT ILLNESS/SLEEP-WAKE EVALUATION: 48-year-old gentleman had been evaluated in the sleep center for possible obstructive sleep apnea hypopnea syndrome. SLEEP SCHEDULE: Usually sleep schedule from 10 PM to 5:30 AM on weekdays and from 10 PM to 7 AM on weekend. FALLING ASLEEP: No problems with falling asleep. DURING SLEEP: Patient has loud snoring and has multiple awakenings from sleep with gasping for air. No history of nocturia. Significant amount of movements during the sleep. No history of hypnogogical hallucinations, sleep paralysis, or cataplexy. DURING THE DAY/WAKE STATE: In the morning patient wake up tired. [place] sleepiness scale is 6. Usually patient does not take naps. PAST MEDICAL HISTORY: Hypertension, anxiety. 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 MEDICATIONS: Please see below. SOCIAL HISTORY: Please see below. FAMILY HISTORY: Please see below. REVIEW OF SYSTEMS: Loud snoring, multiple awakenings from sleep. No fevers. No double vision. No recent chest pain. No shortness of breath. No abdominal pain. No bleeding episodes. No blood in urine. No seizure episodes. PHYSICAL EXAMINATION: GENERAL: A pleasant patient without any distress. VITAL SIGNS: Please see below, weight 230 pounds, BMI 32. HEENT: PERRLA, EOMI. Evaluation of oropharynx showed tongue protrudes midline, low position of soft palate Mallampati 3, retrognathia 3 mm. NECK: Supple. No JVD. Thyroid is not palpable. 17-3/4 inches in circumference. LUNGS: Clear to percussion and to auscultation. Good air exchange. No wheezing or rhonchi. HEART: S1, S2 regular. No murmurs, gallops or rubs. ABDOMEN: Soft and nontender. Bowel sounds are present. No organomegaly appreciated. EXTREMITIES: No clubbing or cyanosis. MILITARY COOK: Awake, alert, and oriented x3. Cranial nerves 2 to 7 intact. There is no fasciculation or atrophy noted. No focal deficits observed. ASSESSMENT: 1. Loud snoring, multiple awakenings from sleep, small oropharyngeal airspace Mallampati 3, retrognathia 3 mm, wide neck 17 and three-quarter inches in circumference. 2. Hypertension. 3. Mild obesity, BMI 32. 4. History of anxiety. 5 status post tonsillectomy. 6 . 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 PLAN: 1. Home sleep apnea test for evaluation of patient's breathing during sleep. 2. Following plan after reading sleep study. 3. Preferable position during sleep on the side. 4. No driving if patient feels any sleepiness. Patient is aware of civil and criminal liability for unsafe driving. 5. Sleep hygiene with regular sleep time for at least 7.5-8 hours. 6. Watching weight. Thank you very much for referring this patient for consultation. Sincerely, Sung Doss MD, PhD, FAASM. Diplomat of [employer], Sleep Medicine Board by [employer] [employer] [employer] Certified Breastfeeding Educator of [facility] [place] cc: Roger Wallace DO Past Medical History Past Medical History: Hearing Disorder / Deafness, Hypertension Additional Past Medical History / Comment(s): upcoming sleep study for possible sleep apnea, adm. in summer @[facility] for mesenteric clot, abd. pain, was on eliquis for short time 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4., bunionectomy Past Anesthesia/Blood Transfusion Reactions: No Reported Reaction Past Psychological History: Anxiety Smoking Status: Never smoker Past Alcohol Use History: Rare Additional Past Alcohol Use History / Comment(s): social drinker, takes marijuana gummy at bedtime. Past Drug Use History: Marijuana - Past Family History Father Family Medical History: Cancer Medications and Allergies Home Medications Medication Instructions Recorded Confirmed Type Multivitamins, Thera [Multivitamin 1 tab PO DAILY 03/25/24 04/04/24 History (formulary)] Sertraline [Zoloft] 50 mg PO HS 03/25/24 04/04/24 History amLODIPine [Norvasc] 5 mg PO HS 03/25/24 04/04/24 History lisinopriL [Zestril] 20 mg PO HS 03/25/24 04/04/24 History Allergies Allergy/AdvReac Type Severity Reaction Status Date / Time No Known Allergies Allergy Verified 03/28/24 09:33 Physical Exam Vitals: Vital Signs Temp Pulse Resp BP Pulse Ox 04/04/24 16:57 98.8 F 68 14 138/80 97 Intake and Output 04/04/24 04/04/24 04/04/24 06:59 14:59 22:59 Other: Weight 104.326 kg Sleep Note - Sleep Data ESS Total: 6 - Sleep Note Sleep Note: Temperature: 98.8 F Pulse Rate: 68 Respiratory Rate: 14 Blood Pressure: 138/80 SpO2: 97 Height: 5 ft 11 in Weight: 104.326 kg BMI: Neck Circumference: 17.7
== END ==
LOC: 3 N SLEEP 16:16
PROVIDERS: ATTEND Internal Medicine
DX: R06.83 Snoring (principal); M26.19 Other specified anomalies of jaw-cranial base relationship; I10 Essential (primary) hypertension; E66.9 Obesity, unspecified; F41.9 Anxiety disorder, unspecified; Z98.890 Other specified postprocedural states; Z90.89 Acquired absence of other organs; Z68.32 Body mass index [BMI] 32.0-32.9, adult; Z79.899 Other long term (current) drug therapy
CPT/HCPCS: 99211

== ENCOUNTER → 2024-04-19 | Outpatient (CLI) | payer BC ==
--- NOTE | 2024-04-20 11:00 | P.PCN ---
Description of Procedure: CLINICAL: A home sleep apnea test has been done for confirmation of possible obstructive sleep apnea-hypopnea syndrome. DESCRIPTION OF PROCEDURE: RESULTS: Recording time was 7 hours 16 minutes. Evaluation time was 6 hours 52 minutes. Evaluation time is sufficient for making conclusion about results of the test. Raw data of sleep recording has been reviewed and is adequate. Respiratory channel showed 130 apneas and 214 hypopneas. Apnea-hypopnea index was 50.0 per hour. Pulse rate in the range between minimum 57, maximum 202, average 75 by computer calculation. Lowest desaturation was 73%. IMPRESSION: 1. Severe Obstructive Sleep Apnea Hypopnea Syndrome with severe oxygen desaturation. Please see other impressions from consultation. PLAN: 1. The patient should have PAP titration for correction of respiratory abnormallities during sleep. 2. Sleep hygiene with regular time in bed for at least 8 hours. 3. Watching weight. 4. No driving if feeling any sleepiness. Thank you very much for allowing me to participate in the management of your patient. Sincerely, Sung Doss MD, PhD, FAASM Diplomat of [employer] Sleep Medicine Board of [place] [employer] Tester [facility] [place] cc: Roger Wallace DO
== END ==
LOC: 3 N SLEEP 16:50
PROVIDERS: ATTEND Internal Medicine
DX: G47.33 Obstructive sleep apnea (adult) (pediatric) (principal); G47.10 Hypersomnia, unspecified; G47.36 Sleep related hypoventilation in conditions classified elsewhere

== ENCOUNTER 2024-06-08 19:43 | Outpatient (CLI) | payer BC ==
--- NOTE | 2024-06-09 10:28 | P.PCN ---
Description of Procedure: CLINICAL: Titration with positive air pressure has been done for correction of respiratory abnormalities during sleep. DESCRIPTION OF PROCEDURE: The standard montage for clinical polysomnography included the electroencephalogram, the electrocardiogram, the mentalis surface electromyography and Lead II cardiography. The respiratory battery consisted of measurements of nasal /buccal air flow, pressure transducer measurements from the nose, thoracic and /or abdominal effort and intercostal surface electromyography. Video monitoring has been done to check for any parasomnia events. Nocturnal oxyhemoglobin saturations were obtained by finger oximetry. Step-benton titration with positive airway pressure was utilized to control respiratory events. Raw data of sleep recording has been reviewed and is adequate. RESULTS: Sleep efficiency was slightly decreased to 81.7%. Latency to sleep onset was in normal range 20.5 minutes.]. Sleep architecture showed stage N1 was extremely short 0.4%, Delta sleep was normal 6.7%, REM sleep was significantly increased to 40.2%. Heart rate was minimum 55 BPM, maximum 64 BPM, average 59 BPM. EMG showed 0.7 periodic limb movements per hour. PAP titration have been done with CPAP up to the pressure 11 cm H2O. The best results were at the pressure 11 cm H2O. Apnea hypopnea index reduced to 1.5. IMPRESSION: 1. Severe obstructive sleep apnea hypopnea syndrome on controle with PAP treatment. 2. No significant periodic limb movements have been documented. Please see other impressions from consultation. PLAN: 1. The patient will have treatment with positive air pressure equipment with the level of pressure AutoPap 5-12 cm H2O and should use it every night for the whole night. 2. Watching weight. 3. Sleep hygiene with regular time in bed for at least 8 hours. 4. No driving if feeling any sleepiness. 5. I will see the patient for follow up visit to explain the results of the t est, recommendations, check compliance with treatment and make any necessary adjustment related to mask fitting, pressure and humidification. Thank you very much for allowing me to participate in the management of your patient. Sincerely, Sung Doss MD, PhD, FAASM Diplomat of [employer] [employer] Sleep Medicine Board of [place] [employer] A/C Tech of [facility] [place] cc: Roger Wallace DO
== END 2024-06-09 05:30 | disposition home or self-care (01) ==
LOC: 3 N SLEEP 19:43
PROVIDERS: ATTEND Internal Medicine
DX: G47.33 Obstructive sleep apnea (adult) (pediatric) (principal); Z99.89 Dependence on other enabling machines and devices; F12.90 Cannabis use, unspecified, uncomplicated
CPT/HCPCS: 95811

== ENCOUNTER → 2024-08-31 | Outpatient (CLI) | payer BC ==
[2024-08-31 15:54] VITALS: BP 134/78; PULSE 62; RESP 16; TEMP 98.8
--- NOTE | 2024-08-31 17:21 | P.PROGSL ---
Subjective DATE: 08/31/2024 FOLLOW UP VISIT. Patient with obstructive sleep apnea hypopnea syndrome return to sleep center for follow-up visit. Recently patient had sleep study which documented obstructive sleep apnea hypopnea syndrome. Patient was initiated on PAP therapy and today is first visit after treatment was started. Patient was able to use PAP equipment every night for the whole night. The patient does not have significant problems with the mask, PAP pressure and humidification. [place] sleepiness scale is 6, which is normal. I checked information from PAP unit. PAP unit pressure 5-12, average 10.6 cm H2O. Usage is 97% and 90% for more then 4 hours, average 7 hours per night. Leak is 4.4 l/m, which is in acceptable range. Apnea Hypopnea Index is 4.5, which is normal. MEDICATIONS: Please see below During physical exam: GENERAL: A pleasant patient without any distress. VITAL SIGNS: Please see below, weight 223 pounds. HEENT: PERRLA, EOMI.low position of soft palate, Mall[place] 3 . NECK: Supple. No JVD. LUNGS: Clear to percussion and to auscultation. Good air exchange. No wheezing or rhonchi. HEART: S1, S2 regular. ABDOMEN: Soft and nontender.[] EXTREMITIES: No clubbing or cyanosis. SHANK CUTTER: Awake, alert, and oriented x3. No focal deficit. Impressions: 1. Obstructive sleep apnea-hypopnea syndrome. Patient demonstrated great compliance with treatment, benefiting from treatment. 2. Hypertension. 3. History of anxiety. 4. Status post tonsillectomy. 5. 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 Plan: 1. Continue using PAP equipment every night for the whole night. 2. To change air filter at least 1-2 times per month. 3. PAP unit should stay lower then position of the head. 4. Advised patient to remove all remaining water from humidifier canister daily and make it dry after each usage. Refill canister with fresh distilled water before each usage. 5. Sleep hygiene with regular time in bed for at least 8 hours. 6. Precautions related to driving. No driving if feel any sleepiness. 7. I will maintain prescription for PAP supplies including mask, tube, filters. 8. Follow up visit in 8 months or earlier if patient has any problems. 9. Watching weight. Thank you very much for allowing me to participate in the management of your patient. Sung Doss MD, PhD, FAASM. Diplomat of [place] [employer], Sleep Medicine Board by [place] [employer] [facility] [place] Objective - Vital Signs Vital Signs: Vital Signs Temp 98.8 F 08/31/24 15:53 Pulse 62 08/31/24 15:53 Resp 16 08/31/24 15:53 BP 134/78 08/31/24 15:53 Pulse Ox 98 08/31/24 15:53 FiO2 Home Medications: Home Medications Medication Instructions Recorded Confirmed Type Multivitamins, Thera [Multivitamin 1 tab PO DAILY 03/25/24 04/04/24 History (formulary)] Sertraline [Zoloft] 50 mg PO HS 03/25/24 04/04/24 History amLODIPine [Norvasc] 5 mg PO HS 03/25/24 04/04/24 History lisinopriL [Zestril] 20 mg PO HS 03/25/24 04/04/24 History
== END ==
LOC: 3 N SLEEP 15:44
PROVIDERS: ATTEND Internal Medicine
DX: G47.33 Obstructive sleep apnea (adult) (pediatric) (principal); I10 Essential (primary) hypertension; Z86.59 Personal history of other mental and behavioral disorders; Z98.890 Other specified postprocedural states; Z90.81 Acquired absence of spleen
CPT/HCPCS: 99212